=== PATIENT | female | born 1970 | race Caucasian/White ===

== ENCOUNTER 2021-08-28 12:23 | Emergency (ER) | payer OTHER, SELFPAY ==
[2021-08-28] VITALS (17 sets, daily range): BP systolic 113–138; BP diastolic 67–84; PULSE 64–82; RESP 16; TEMP 36.4; O2SAT 87–99
--- NOTE | 2021-08-28 12:36 | DI.RAD.S_ITS ---
PROCEDURE: XR CHEST 1V INDICATIONS: altered mental status TECHNIQUE: One view of the chest was acquired. COMPARISON: None. FINDINGS: Surgical changes and devices: None. Lungs and pleura: Lung volumes are slightly diminished. Minimal streaky bibasilar opacities likely representing atelectasis. No focal consolidation. No substantial pleural effusion seen. No pneumothorax. Mediastinum: Mediastinal contours appear normal. Heart size is normal. Bones and chest wall: No suspicious bony lesions. Overlying soft tissues appear unremarkable. IMPRESSION: Slightly diminished lung volumes with minimal bibasilar opacities which are favored to represent atelectasis. No focal consolidation. Consider dedicated upright PA and lateral views of the chest when patient is able. Dictated by: Jorge Isaac M.D. on 08/28/2021 at 12:50 Approved by: Jorge Isaac M.D. on 08/28/2021 at 12:52
[2021-08-28 12:46] LABS: Add Manual Diff / Slide Review NO; Basophils Absolute Auto 100 /uL (0-100); Basophils Percent Auto 0.9 % (0-2); Eosinophils Absolute Auto 300 /uL (0-450); Eosinophils Percent Auto 3.3 % (2-4); Hematocrit 40.4 % (36-46); Hemoglobin 13.7 g/dL (12.0-16.0); Lymphocytes Absolute Auto 1600 /uL (1100-4500); Mean Corpuscular Hemoglobin 31.1 PG (26-34); Mean Corpuscular Volume 91.7 fL (80-100); Monocytes Absolute Auto 700 /uL (0-900); Monocytes Percent Auto 8.2 % (3-14); Neutrophils Absolute Auto 5800 /uL (1500-7000); Neutrophils Percent Auto 68.6 % (50-75); Platelet Count 264 X10^3/uL (150-400); Red Blood Cell Count 4.41 X10^6/uL (4.0-5.2); Red Cell Distribution Width 12.6 % (11.6-14.8); White Blood Cell Count 8.4 X10^3/uL (4.5-11.0)
--- NOTE | 2021-08-28 12:48 | PC.NURSE ---
Patient arrives post ictal. Patient curled up in position, had pulled IV out upon arrival by EMS. Patient opens eyes to verbal stimulation but does not speak.
[2021-08-28 13:03] LABS: Albumin 4.6 g/dL (3.5-5.0); Albumin Globulin Ratio 1.4 (1.0-2.8); Alkaline Phosphatase 62 U/L (38-126); Aspartate Aminotransferase 36 IU/L (14-36); BUN Creatinine Ratio 18.7 (6-22); Bilirubin Total 0.6 mg/dL (0.2-1.3); Blood Urea Nitrogen 14 mg/dL (7-17); Calcium 9.3 mg/dL (8.4-10.2); Carbon Dioxide 13 mmol/L (22-32); Chloride 104 mmol/L (98-107); Estimated Glomerular Filt Rate > 60 mL/min (>60); Globulin 3.2 g/dL (1.7-4.1); Glucose 193 mg/dL (70-100); Potassium 4.1 mmol/L (3.4-5.1); Sodium 134 mmol/L (137-145); Total Protein 7.8 g/dL (6.3-8.2)
[2021-08-28 13:09] LABS: Alanine Aminotransferase 28 IU/L (<35)
[2021-08-28 13:18] LABS: HEMOLYSIS 44 (0-50)
[2021-08-28 13:39] LABS: COVID19 -Nasal RAPID Negative (Negative)
[2021-08-28 14:26] LABS: Appearance Urine UA CLEAR; Bilirubin Urine UA NEGATIVE (NEGATIVE); Color Urine UA YELLOW; Glucose Urine UA NEGATIVE (Negative); Ketones Urine UA NEGATIVE (NEGATIVE); Leukocyte Esterase Urine UA TRACE (NEGATIVE); Nitrite Urine UA NEGATIVE (Negative); Occult Blood Urine UA 3+ (Negative); Protein Urine UA TRACE (Negative); Urobilinogen Urine UA 0.2 E.U./dL (0.2)
[2021-08-28 14:29] LABS: pH Urine UA 6.5 (4.5-8.0)
--- NOTE | 2021-08-28 14:33 | ED_ITS ---
HPI - Seizure General Chief Complaint: Seizure Stated Complaint: Seizure Time Seen by Provider: 08/28/21 12:30 History of Present Illness HPI Narrative: Patient is a 51-year-old female with history of intracerebral hemorrhage is presenting today with seizure. She states is she and her neurologist at [facility] have been slowly weaning down her seizure medication. According to records she was on Keppra 1000 mg twice a day is now on 250 mg. Off she has been doing well until today. She actually has not had any seizure since her stroke in 2019. Today she was standing at the rail on the stairs her eyes rolled in the back of your her head she got very stiff shaking all over. She did not bite her tongue. She does not remember anything. She was postictal but now seems to be coming around. She did have a headache but no longer having headache. She says that she has been sleeping she denies any alcohol use. She initially reported nursing staff she may have had upper respiratory like cold symptoms but not any longer. Patient's has been called dispatch and he was instructed to start CPR she to was having some sonorous breathing. And she does complain of some chest discomfort. Related Data Previous Rx's Medication Instructions Recorded levetiracetam 1,000 mg tablet 1,000 mg PO Q12H #60 tabs 08/28/21 (Keppra) Review of Systems Review of Systems Narrative: GENERAL: Denies chills, fatigue, malaise, fever, sweats, travel HEENT: Denies sinus pain, ear pain, sore throat, difficulty swallowing, neck pain RESPIRATORY: Denies dyspnea, cough, wheezing, hemoptysis, sputum. CARDIOVASCULAR: Denies chest pain, palpitations, orthopnea, edema GASTROINTESTINAL: Denies nausea, vomiting, abdominal pain, diarrhea, constipation, melena. : Denies dysuria, frequency, incontinence, hematuria, urinary retention, flank pain. MUSCULOSKELETAL: Denies weakness, joint pain, or bony pain SKIN: No rash, no erythema, no pruritus NEUROLOGIC: See HPI PSYCHIATRIC: No concerning psychosocial issues. 12 point review of systems is negative except for those stated above and HPI Exam Initial Vital Signs Initial Vital Signs: Vital Signs Pulse Rate 82 08/28/21 12:28 Pulse Oximetry 97 08/28/21 12:28 GENERAL: Alert well-appearing 51-year-old female and in no acute distress. HEENT: Head atraumatic,EOMI, pupils reactive, face symmetric, moist mucous membranes CARDIOVASCULAR: Regular rate and rhythm without murmurs, rubs or gallops. RESPIRATORY: Breath sounds equal bilaterally, no wheezes rales or rhonchi. ABDOMEN: Soft, nontender. Normoactive bowel sounds all 4 quadrants. No guarding or rebound. EXTREMITIES: Normal range of motion, no clubbing or edema. Neurovascularly intact NEUROLOGICAL: Alert and oriented x4.Normal gait and speech. Cranial nerves II through XII grossly intact. Good [id number], good [id number], strength equal bilaterally, no dysarthria or aphasia, sensation in tact to soft touch bilaterally, no visual changes, no facial droop SKIN: Warm, dry, no laceration, no petechiae, no rashes or lesions. Course Orders Ordered: ED Orders 08/28/21 12:30 Complete Blood Count AUTO DIFF Stat Comprehensive Metabolic Panel Stat 08/28/21 12:36 XR chest 1V Stat EKG-12 Lead Stat 08/28/21 13:13 COVID19 -Nasal RAPID/Pre-Proc Stat 08/28/21 14:17 Urinalysis and Microscopic Stat Urine Culture Stat Urine Drug Screen, Rapid Stat 08/28/21 18:23 CT head/brain wo con Stat Discontinued Medications Sodium Chloride (Normal Saline 0.9%) 1,000 mls @ 1,000 mls/hr IV BOLUS ONE Stop: 08/28/21 15:42 Last Infusion: 08/28/21 17:29 Dose: 0 mls/hr Documented By: [facility] Admin: 08/28/21 14:47 Dose: 1,000 mls/hr Documented By: [facility] Levetiracetam 1,000 mg/ Sodium (Chloride) 110 mls @ 440 mls/hr IV NOW ONE Stop: 08/28/21 16:36 Last Infusion: 08/28/21 17:45 Dose: 0 mls/hr Documented By: [facility] Admin: 08/28/21 17:22 Dose: 440 mls/hr Documented By: [facility] Vital Signs Vital signs: Vital Signs - 8 hr 08/28/21 12:34 08/28/21 12:28 08/28/21 12:29 Temperature 97.6 F Pulse Rate 77 82 Respiratory Rate 16 Blood Pressure 113/67 113/67 Pulse Oximetry 97 97 Oxygen Delivery Method Room Air 08/28/21 12:29 08/28/21 12:30 08/28/21 12:30 Temperature Pulse Rate 78 80 Respiratory Rate Blood Pressure 113/73 Pulse Oximetry 97 98 Oxygen Delivery Method 08/28/21 13:00 08/28/21 13:30 08/28/21 14:00 Temperature Pulse Rate 80 72 74 Respiratory Rate Blood Pressure Pulse Oximetry 97 95 99 Oxygen Delivery Method 08/28/21 14:16 08/28/21 14:16 08/28/21 14:30 Temperature Pulse Rate 68 Respiratory Rate Blood Pressure 138/84 127/78 Pulse Oximetry 96 Oxygen Delivery Method 08/28/21 14:30 08/28/21 15:00 08/28/21 15:00 Temperature Pulse Rate 68 70 Respiratory Rate Blood Pressure 122/70 Pulse Oximetry 97 96 Oxygen Delivery Method 08/28/21 17:46 08/28/21 17:47 08/28/21 17:47 Temperature Pulse Rate 66 Respiratory Rate Blood Pressure 130/78 130/78 Pulse Oximetry 87 L 97 Oxygen Delivery Method 08/28/21 18:00 08/28/21 18:00 08/28/21 18:30 Temperature Pulse Rate 64 Respiratory Rate Blood Pressure 129/84 120/81 Pulse Oximetry 97 Oxygen Delivery Method 08/28/21 18:30 08/28/21 19:02 08/28/21 19:30 Temperature Pulse Rate 68 73 71 Respiratory Rate Blood Pressure Pulse Oximetry 95 98 97 Oxygen Delivery Method 08/28/21 19:32 08/28/21 19:32 Temperature Pulse Rate 69 Respiratory Rate Blood Pressure 124/83 Pulse Oximetry 97 Oxygen Delivery Method Room Air MDM - Seizure Lab Data Result diagrams: 08/28/21 12:30 08/28/21 12:30 Labs: Lab Results 08/28/21 08/28/21 08/28/21 Range/Units 12:30 12:30 13:13 WBC 8.4 (4.5-11.0) X10^3/uL RBC 4.41 (4.0-5.2) X10^6/uL Hgb 13.7 (12.0-16.0) g/dL Hct 40.4 (36-46) % MCV 91.7 (80-100) fL MCH 31.1 (26-34) PG MCHC 34.0 (30-36) % RDW 12.6 (11.6-14.8) % Plt Count 264 (150-400) X10^3/uL Neut % (Auto) 68.6 (50-75) % Lymph % (Auto) 19.0 L (25-40) % Wilkinson % (Auto) 8.2 (3-14) % Eos % (Auto) 3.3 (2-4) % Baso % (Auto) 0.9 (0-2) % Neut # (Auto) 5800 (9403-6070) /uL Lymph # (Auto) 1600 (1605-7477) /uL Wilkinson # (Auto) 700 (0-900) /uL Eos # (Auto) 300 (0-450) /uL Baso # (Auto) 100 (0-100) /uL Sodium 134 L (137-145) mmol/L Potassium 4.1 (3.4-5.1) mmol/L Chloride 104 (98-107) mmol/L Carbon Dioxide 13 L (22-32) mmol/L BUN 14 (7-17) mg/dL Creatinine 0.75 (0.52-1.04) mg/dL Estimated GFR > 60 (>60) mL/min BUN/Creatinine Ratio 18.7 (6-22) Glucose 193 H (70-100) mg/dL Calcium 9.3 (8.4-10.2) mg/dL Total Bilirubin 0.6 (0.2-1.3) mg/dL AST 36 (14-36) IU/L ALT 28 (<35) IU/L Alkaline Phosphatase 62 (38-126) U/L Total Protein 7.8 (6.3-8.2) g/dL Albumin 4.6 (3.5-5.0) g/dL Globulin 3.2 (1.7-4.1) g/dL Albumin/Globulin Ratio 1.4 (1.0-2.8) Urine Color Urine Appearance Urine pH (4.5-8.0) Ur Specific [place] (1.000-1.035) Urine Protein (Negative) Urine Glucose (UA) (Negative) g/dL Urine Ketones (NEGATIVE) Urine Occult Blood (Negative) Urine Nitrate (Negative) Urine Bilirubin (NEGATIVE) Urine Urobilinogen (0.2) E.U./dL Ur Leukocyte Esterase (NEGATIVE) Urine RBC (0-5/HPF) Urine WBC (0-5/HPF) Ur Squamous Epith Cells (0-5/HPF) Urine Bacteria (None) Ur Culture Indicated? U Opiates 300ng/mL cut (Negative) Ur Oxycodone Screen (Negative) Urine Methadone Screen (Negative) Ur Barbiturates Screen (Negative) U Tricyclic Antidepress (Negative) Ur Phencyclidine Scrn (Negative) Ur Amphetamines Screen (Negative) U Methamphetamines Scrn (Negative) Ur MDMA Scrn (Ecstasy) (Negative) U Benzodiazepines Scrn (Negative) Urine Cocaine Screen (Negative) U Marijuana (THC) Screen (Negative) SARS-CoV-2 (PCR) Negative (Negative) 08/28/21 08/28/21 Range/Units 14:17 14:17 WBC (4.5-11.0) X10^3/uL RBC (4.0-5.2) X10^6/uL Hgb (12.0-16.0) g/dL Hct (36-46) % MCV (80-100) fL MCH (26-34) PG MCHC (30-36) % RDW (11.6-14.8) % Plt Count (150-400) X10^3/uL Neut % (Auto) (50-75) % Lymph % (Auto) (25-40) % Wilkinson % (Auto) (3-14) % Eos % (Auto) (2-4) % Baso % (Auto) (0-2) % Neut # (Auto) (9306-6666) /uL Lymph # (Auto) (4587-9333) /uL Wilkinson # (Auto) (0-900) /uL Eos # (Auto) (0-450) /uL Baso # (Auto) (0-100) /uL Sodium (137-145) mmol/L Potassium (3.4-5.1) mmol/L Chloride (98-107) mmol/L Carbon Dioxide (22-32) mmol/L BUN (7-17) mg/dL Creatinine (0.52-1.04) mg/dL Estimated GFR (>60) mL/min BUN/Creatinine Ratio (6-22) Glucose (70-100) mg/dL Calcium (8.4-10.2) mg/dL Total Bilirubin (0.2-1.3) mg/dL AST (14-36) IU/L ALT (<35) IU/L Alkaline Phosphatase (38-126) U/L Total Protein (6.3-8.2) g/dL Albumin (3.5-5.0) g/dL Globulin (1.7-4.1) g/dL Albumin/Globulin Ratio (1.0-2.8) Urine Color Yellow Urine Appearance Clear Urine pH 6.5 (4.5-8.0) Ur Specific [place] 1.010 (1.000-1.035) Urine Protein Trace H (Negative) Urine Glucose (UA) Negative (Negative) g/dL Urine Ketones Negative (NEGATIVE) Urine Occult Blood 3+ H (Negative) Urine Nitrate Negative (Negative) Urine Bilirubin Negative (NEGATIVE) Urine Urobilinogen 0.2 (0.2) E.U./dL Ur Leukocyte Esterase Trace H (NEGATIVE) Urine RBC 1-5/hpf (0-5/HPF) Urine WBC 0-1/hpf (0-5/HPF) Ur Squamous Epith Cells 1-5 /hpf (0-5/HPF) Urine Bacteria None seen (None) Ur Culture Indicated? Specimen cultured U Opiates 300ng/mL cut Negative (Negative) Ur Oxycodone Screen Negative (Negative) Urine Methadone Screen Negative (Negative) Ur Barbiturates Screen Negative (Negative) U Tricyclic Antidepress Negative (Negative) Ur Phencyclidine Scrn Negative (Negative) Ur Amphetamines Screen Negative (Negative) U Methamphetamines Scrn Negative (Negative) Ur MDMA Scrn (Ecstasy) Negative (Negative) U Benzodiazepines Scrn Negative (Negative) Urine Cocaine Screen Negative (Negative) U Marijuana (THC) Screen Positive H (Negative) SARS-CoV-2 (PCR) (Negative) Point of Care Testing Glucose POC 198 Imaging Data Chest x-ray: Radiologist's Impression: XRay Report Signed Patient: Paulina Shoemaker MR#: [id number] : 1970 Acct:[id number] Age/Sex: 51 / F Date of Service: 08/28/21 Loc: ED Accession Number: [id number] ?? Procedure: XR chest 1V Ordering Provider: Loraine Garcia D.O. PROCEDURE:? XR CHEST 1V ? INDICATIONS:? altered mental status ? TECHNIQUE:? One view of the chest was acquired.? ? COMPARISON:? None. ? FINDINGS:? ? Surgical changes and devices:? None.? ? Lungs and pleura:? Lung volumes are slightly diminished.? Minimal streaky bibasi lar opacities likely representing atelectasis.? No focal consolidation.? No substantial pleural effusion seen.? No pneumothorax. ? Mediastinum:? Mediastinal contours appear normal.? Heart size is normal.? ? Bones and chest wall:? No suspicious bony lesions.? Overlying soft tissues appear unremarkable.? ? IMPRESSION:? Slightly diminished lung volumes with minimal bibasilar opacities which are favored to represent atelectasis.? No focal consolidation.? Consider dedicated upright PA and lateral views of the chest when patient is able. ? ? Dictated by: Jorge Isaac M.D. on 08/28/2021 at 12:50 ? ? CT scan - head: Radiologist's Impression: CT Scan Report Signed Patient: Paulina Shoemaker MR#: [id number] : 1970 Acct:[id number] Age/Sex: 51 / F Date of Service: 08/28/21 Loc: ED Accession Number: [id number] ?? Procedure: CT head/brain wo con Ordering Provider: Loraine Garcia D.O. PROCEDURE:? CT HEAD/BRAIN WO CON ? INDICATIONS:? HX bleed, seizure history. Seizure today ? TECHNIQUE:? Noncontrast 5 mm thick angled axial sections acquired from the foramen magnum to the vertex, with coronal and sagittal reformats.? For radiation dose reduction, the following was used:? automated exposure control, adjustment of mA and/or kV according to patient size.? ? COMPARISON:? None. ? FINDINGS:? Image quality:? Excellent.? ? CSF spaces:? Basal cisterns are patent.? No extra-axial fluid collections.? Ventricles are normal in size and shape.? ? Brain:? Focal gliotic track lined with canseco matter extends from the ventricular surface of the left lateral ventricular occipital horn to the cortical occipital lobe, consistent with schizencephaly.? No midline shift.? No intracranial masses or hemorrhage.? Canseco-white matter interface is normal.? ? Skull and face:? Calvarium and visualized facial bones are intact, without suspicious lesions.? ? Sinuses:? Visualized sinuses and mastoids are clear.? ? IMPRESSION:? ? Left occipital congenital schizencephaly ? ? ? Approved by: Phi Snyder M.D. on 08/28/2021 at 18:13? ECG Data Interpretation: Normal sinus rhythm rate 82 LA interval 202 QRS 100 QTC 440 on benign early repolarization is noted in lead 1 to AVF V3 V4 V5 V6 no ST depression or T-wave inversion MDM Narrative Medical decision making narrative: Patient has a known seizure disorder after intracranial hemorrhage. CT today does not show any sort of intracranial hemorrhage she really did have any focal deficits today. His but she very obviously was postictal bicarb is noted to be slightly low consistent with probable seizure. Attempted to find her neurologist thing in touch with them however unsuccessful. She is loaded with Keppra 1000 mg and restarted on her Keppra 1000 mg twice a day. I recommended that she follow-up with her neurologist I suspect that she will likely be back on antiseizure medications indefinitely. Discharge Plan Departure Patient Disposition: Home Clinical Impression: Generalized seizure Instructions: DI for Seizure Disorder -- Adult Activity Restrictions/Additional Instructions: Do not drive until cleared by your neurologist *You have been diagnosed with seizure *What to do: Lab this time it is likely you will need to be on seizure medications. You will need to discuss this with your neurologist. At this time I recommend resuming it your Keppra as previously prescribed *Continue to take medications as directed Keppra 1000 mg twice a day *Follow up with your primary care provider in 2-3 days or call [phone] Call your neurologist tomorrow to schedule follow-up appointment. *Return to ER if you should have seizure [or] any new, worsening or concerning symptoms Prescriptions: New levetiracetam [Keppra] 1,000 mg tablet 1,000 mg PO Q12H Qty: 60 0RF Visit Report Forms: Patient Portal/API
[2021-08-28 14:37] LABS: UR Morphine/Opiate cutoff 300 Negative (Negative); Ur Creatinine Normal (Normal); Ur Specific Gravity Normal (Normal); Urine Amphetamines Negative (Negative); Urine Barbiturates Negative (Negative); Urine Benzodiazepines Negative (Negative); Urine Cocaine Negative (Negative); Urine MDMA Negative (Negative); Urine Methadone Negative (Negative); Urine Methamphetamines Negative (Negative); Urine Oxycodone Negative (Negative); Urine Phencyclidine Negative (Negative); Urine Tetrahydrocannabinol Positive (Negative); Urine Tricyclic Antidepressant Negative (Negative); Urine pH Normal (Normal)
[2021-08-28 14:39] LABS: Bacteria Urine None Seen; Culture Indicated Urine Specimen Cultured; RBC Urine 1-5/HPF (0-5/HPF); Squamous Epithelial Cell Urine 1-5 /HPF (0-5/HPF); WBC Urine 0-1/HPF (0-5/HPF)
[2021-08-28] MEDS: SODIUM CHLORIDE 0.9% 1,000 ML 1000 ML IV (14:47)
[2021-08-28] MEDS: levETIRAcetam 1,000 MG in SODIUM CHLORIDE 0.9% 100 ML 440 MG IV (17:22)
--- NOTE | 2021-08-28 18:23 | DI.CT.S_ITS ---
PROCEDURE: CT HEAD/BRAIN WO CON INDICATIONS: HX bleed, seizure history. Seizure today TECHNIQUE: Noncontrast 5 mm thick angled axial sections acquired from the foramen magnum to the vertex, with coronal and sagittal reformats. For radiation dose reduction, the following was used: automated exposure control, adjustment of mA and/or kV according to patient size. COMPARISON: None. FINDINGS: Image quality: Excellent. CSF spaces: Basal cisterns are patent. No extra-axial fluid collections. Ventricles are normal in size and shape. Brain: Focal gliotic track lined with canseco matter extends from the ventricular surface of the left lateral ventricular occipital horn to the cortical occipital lobe, consistent with schizencephaly. No midline shift. No intracranial masses or hemorrhage. Canseco-white matter interface is normal. Skull and face: Calvarium and visualized facial bones are intact, without suspicious lesions. Sinuses: Visualized sinuses and mastoids are clear. IMPRESSION: Left occipital congenital schizencephaly Approved by: Phi Snyder M.D. on 08/28/2021 at 18:13
== END 2021-08-28 19:40 | disposition home or self-care (01) ==
PROVIDERS: Emergency Provider Emergency Medicine
DX: G40.409 Other generalized epilepsy and epileptic syndromes, not intractable, without status epilepticus (principal); R07.9 Chest pain, unspecified; Z20.822 Contact with and (suspected) exposure to COVID-19
CPT/HCPCS: 70450; 71045; 80053; 80305; 81001; 82962; 85025; 87086; 87635; 93005; 93010; 96361; 96365; 99284; C9803; J1953

== ENCOUNTER 2023-02-15 14:12 | Emergency (ER) | payer OTHER, SELFPAY ==
[2023-02-15 14:23] VITALS: BP 119/76; PULSE 59; RESP 16; TEMP 36.4; O2SAT 98; BMI 29.7
--- NOTE | 2023-02-15 14:30 | ED_ITS ---
HPI - Wound/Laceration <Chico Pradhan PA-C - Last Filed: 02/15/23 15:09> General Chief Complaint: Wound/Laceration Stated Complaint: lf hand laceration at work Time Seen by Provider: 02/15/23 14:19 History of Present Illness HPI narrative: This is a 52-year-old female presents emergency department due to a laceration to the palm of the left hand. She states that she was working in the kitchen with a very clean knife when she accidentally cut the palm of the left hand just proximal to the 5th digit. Denies any active spreading blood but does have mild oozing. Tetanus is up-to-date. Denies any changes in range of motion in the distal fingers or hand. Related Data Previous Rx's Medication Instructions Recorded levetiracetam 1,000 mg tablet 1,000 mg PO Q12H #60 tabs 08/28/21 (Jeff) Review of Systems <Chico Pradhan PA-C - Last Filed: 02/15/23 15:09> Review of Systems Narrative: GENERAL: Denies chills, fatigue, malaise, fever, sweats. HEENT: Denies sinus pain, ear pain, sore throat, difficulty swallowing, dizziness. RESPIRATORY: Denies dyspnea, cough, wheezing, hemoptysis, sputum. CARDIOVASCULAR: Denies chest pain, palpitations, orthopnea, edema, GASTROINTESTINAL: Denies nausea, vomiting, abdominal pain, diarrhea, constipation, melena. : Denies dysuria, frequency, incontinence, hematuria, urinary retention. MUSCULOSKELETAL: denies weakness, joint pain, or bony pain SKIN: Laceration to the palm of right hand Denies rash, skin lesions, or other NEUROLOGIC: Denies weakness, headache, numbness, change in speech, confusion, seizures, incoordination. PSYCHIATRIC: No concerning psychosocial issues. 12 point review of systems is negative except for those stated above Exam <SARA Cade Last Filed: 02/15/23 15:09> Narrative Exam Narrative: GENERAL: Well-developed patient, in mild distress. HEAD: Atraumatic. Normocephalic. EYES: Pupils equal round and reactive. Extraocular motions intact. No scleral icterus. No injection or drainage. ENT: Nose without bleeding, purulent drainage. Throat without erythema, tonsillar hypertrophy or exudate. Airway patent. NECK: Trachea midline. Non tender EXTREMITIES: No edema or joint tenderness. BACK: Nontender without deformity or crepitance. No flank tenderness. NEURO: AOx3. SKIN: Approximately 1.5 cm laceration to the palmar aspect just proximal to the 5th digit. No active bleeding. Full range of motion and flexion-extension of the right 5th digit. No foreign bodies. No rash or erythema of visible areas Initial Vital Signs Initial Vital Signs: Vital Signs Temperature 97.5 F L 02/15/23 14:23 Pulse Rate 59 L 02/15/23 14:23 Respiratory Rate 16 02/15/23 14:23 Blood Pressure 119/76 02/15/23 14:23 Pulse Oximetry 98 02/15/23 14:23 Oxygen Delivery Method Room Air 02/15/23 14:23 <Oumar Oreilly DO - Last Filed: 02/15/23 15:58> Initial Vital Signs Initial Vital Signs: Vital Signs Temperature 97.5 F L 02/15/23 14:23 Pulse Rate 59 L 02/15/23 14:23 Respiratory Rate 16 02/15/23 14:23 Blood Pressure 119/76 02/15/23 14:23 Pulse Oximetry 98 02/15/23 14:23 Oxygen Delivery Method Room Air 02/15/23 14:23 Procedures <SARA Cade Last Filed: 02/15/23 15:09> Laceration Repair Laceration 1: Time of procedure: 15:05 Site: hand Side (If applicable): left Size (cm): 1.5 Description: linear Depth: simple, single layer Local Anesthetic: lidocaine 2% and with epi Amount of anesthesia used (mL): 4 Pre-repair: irrigated extensively Skin layer closed with: nylon Skin layer suture size: 5-0 Number of sutures: 3 Technique: simple, interrupted Course <SARA Cade Last Filed: 02/15/23 15:09> Orders Ordered: Discontinued Medications Lidocaine/Epinephrine (Lidocaine 1% W/Epi) 4 ml INJ INTRA-OP ONE Stop: 02/15/23 14:34 Last Admin: 02/15/23 14:44 Dose: Not Given Documented By: [facility] Vital Signs Vital signs: Vital Signs - 8 hr 02/15/23 14:23 Temperature 97.5 F L Pulse Rate 59 L Respiratory Rate 16 Blood Pressure 119/76 Pulse Oximetry 98 Oxygen Delivery Method Room Air <Oumar Oreilly DO - Last Filed: 02/15/23 15:58> Orders Ordered: Discontinued Medications Lidocaine/Epinephrine (Lidocaine 1% W/Epi) 4 ml INJ INTRA-OP ONE Stop: 02/15/23 14:34 Last Admin: 02/15/23 14:44 Dose: Not Given Documented By: [facility] Vital Signs Vital signs: Vital Signs - 8 hr 02/15/23 14:23 Temperature 97.5 F L Pulse Rate 59 L Respiratory Rate 16 Blood Pressure 119/76 Pulse Oximetry 98 Oxygen Delivery Method Room Air MDM - Wound/Laceration <Chico Pradhan PA-C - Last Filed: 02/15/23 15:09> MDM Narrative Medical decision making narrative: This is a 52-year-old female presents to the emergency department due to left palm laceration. There was no evidence of any kind of tendon injury as patient has full flexion-extension of her left 5th digit. Tetanus was up-to-date. Patient states he was very clean knife. No antibiotics were prescribed. Laceration closed without complications as noted above in the procedure note. CC: Hand laceration Complicating co-morbidities: None Data collected from: Previous notes Medical records reviewed: Patient was seen here a year and a half ago due to seizure. History of intracerebral hemorrhage. Seen by a neurologist at [facility]. CT taken which was unremarkable and patient did not have any focal deficits. Patient was restarted on her Keppra a 1000 mg twice a day. Differential considered, but not limited to: Soft tissue laceration, tendon injury, fracture, foreign body Exam documented above, pertinent findings include: Simple laceration to the palm of the left hand. Full flexion of the left 5th digit and no concern for tendon injury Lab Test results independently reviewed as above. Pertinent findings: None obtained Imaging studies independently reviewed: None obtained Scores Used: None MIPS Elements: None Consultations: None Treatments: Laceration closure as above Re-evaluations: None Discussion: Discussed plan with the patient is comfortable with the plan Diagnosis: Left hand laceration Disposition: see below, along with detailed discharge instructions that have been reviewed with patient as well as indications for ED re-evaluation and additional outpatient follow up Discharge Plan Departure Patient Disposition: Home Clinical Impression: Laceration Instructions: How to Care for a Laceration After Repair, DI for Laceration Repair Activity Restrictions/Additional Instructions: Thank you for coming to the [facility] Emergency Department today. I am glad that we are able to close up the laceration to left hand. Please follow up in the walk-in clinic or with your primary care provider in 7-10 days for a wound check and possible suture removal. Please monitor the wound for any spreading redness or purulent discharge or any concerns for infection. I hope you feel better soon. Please follow up with your primary care provider within a week if your symptoms continue. If you do not have a primary care provider please contact the [facility] Resource line at [phone]. They will ask some questions about your medical history and help you get set up with a provider in the community. Prescriptions: No Action levetiracetam [Keppra] 1,000 mg tablet 1,000 mg PO Q12H Qty: 60 0RF Stand Alone Forms: Patient Portal/API ED Sign-out <Oumar Oreilly, DO - Last Filed: 02/15/23 15:58> Cosign ED Attending Cosignature Attestation: Dr Oreilly Co-Sign Statement: I was available for consultation during this patient's emergency department visit. This chart is signed by myself for administrative purposes only. I did not have direct contact with this patient during this visit. They were seen independently by the APC.
--- NOTE | 2023-02-15 14:42 | PC.NURSE ---
hand cleaned well with soap and water then irrigated with normal saline.
[2023-02-15] MEDS: LIDOCAINE 2% W/EPI INJ 20 ML (14:44)
== END 2023-02-15 15:12 | disposition home or self-care (01) ==
PROVIDERS: Emergency Provider Physician Assistant Medical
DX: S61.412A Laceration without foreign body of left hand, initial encounter (principal); W26.0XXA Contact with knife, initial encounter; Y99.0 Civilian activity done for income or pay
CPT/HCPCS: 12001; 99282; 99283